=== PATIENT | male | born 1985 | race African-American/Black ===

== ENCOUNTER 2024-07-13 00:58 | Emergency (ER) | payer SELFPAY ==
[~2024-07-13] VITALS: Ht 188 cm; Wt 108.0 kg
[2024-07-13] MEDS ORDERED: KETOROLAC TROMETHAMINE 30 MG/ML SDV IV ONE (01:45)
[2024-07-13] MEDS ORDERED: ONDANSETRON HCl 4 MG/2 ML SDV IV ONE (01:45)
[2024-07-13] MEDS ORDERED: MORPHINE SULFATE 4 MG/ML VIAL IV ONE (01:45)
[2024-07-13 03:53] VITALS: BP 168/98
== END 2024-07-13 03:54 | disposition home or self-care (01) | DRG 103 ==
LOC: ED 00:58
DX: G43.909 Migraine, unspecified, not intractable, without status migrainosus (principal)
CPT/HCPCS: J2405

== ENCOUNTER 2024-08-01 22:29 | Emergency (ER) | payer SELFPAY ==
[~2024-08-01] VITALS: Ht 188 cm; Wt 109.0 kg
[2024-08-01] MEDS ORDERED: KETOROLAC TROMETHAMINE 30 MG/ML SDV IV ONE (23:20)
[2024-08-01] MEDS ORDERED: SODIUM CHLORIDE 0.9% 1,000 ML IV ONE (23:20)
[2024-08-01] MEDS ORDERED: ACETAMINOPHEN 500 MG TAB PO ONE (23:20)
[2024-08-01] MEDS ORDERED: cloNIDine HCL 0.1 MG/TAB PO ONE (23:20)
[2024-08-01] MEDS ORDERED: LABETALOL HCL 20 MG/ 4 ML CARTRG IV ONE (23:20)
[2024-08-01 23:50] LABS: BASO% 0.3 % (0-3); EOS% 3.6 % (0-8); HEMATOCRIT 44.7 % (39.0-50.0); HEMOGLOBIN 15.3 g/dl (14.0-18.0); IMMATURE GRANULOCYTES 0.6 % (0.0-5.0); MEAN CELL VOLUME 90.9 fL CALC (80.0-100.0); MEAN CORPUSCULAR HGB 31.1 pG CALC (26.0-32.0); MEAN CORPUSCULAR HGB CONC 34.2 g/dL CAL (32.0-36.0); MONO% 7.6 % (2-13); NEUT# 4.17 thou/uL (1.82-7.42); NEUT% 59.9 % (42-76); RED BLOOD COUNT 4.92 mill/uL (4.70-6.10); RED CELL DISTRI WIDTH 12.9 % (11.5-15.5)
[2024-08-02 00:05] LABS: ALBUMIN 4.5 g/dL (3.2-5.0); BILIRUBIN, TOTAL 0.7 mg/dL (0.2-1.3); CREATININE 1.2 mg/dL (0.7-1.3); POTASSIUM 4.6 mmol/l (3.5-5.1); TOTAL PROTEIN 8.3 g/dL (6.3-8.2)
[2024-08-02 00:15] VITALS: BP 124/86
[2024-08-02 00:30] VITALS: BP 113/79
[2024-08-02 00:35] LABS: TSH, 3RD GENERATION 1.3 uIU/mL (0.47 - 4.68)
[2024-08-02] MEDS ORDERED: CARDIZEM CD240 MG PO (00:43)
[2024-08-02 01:00] VITALS: BP 115/67
[2024-08-02 01:15] VITALS: BP 115/67
== END 2024-08-02 01:18 | disposition home or self-care (01) | DRG 305 ==
LOC: ED 22:29
PROVIDERS: Family Medicine
DX: I10 Essential (primary) hypertension (principal); T46.5X6A Underdosing of other antihypertensive drugs, initial encounter; Z91.128 Patient's intentional underdosing of medication regimen for other reason